=== PATIENT | male | born 1960 | race African-American/Black ===

== ENCOUNTER 2018-03-14 11:42 | Inpatient (IN) | payer MEDICAID, OTHER ==
[~2018-03-14] VITALS: Ht 180.3 cm; Wt 78.0 kg
[2018-03-14 12:28] LABS: BASOPHILS % 0.5 % (0.0-2.0); EOSINOPHILS % 0.1 % (0.0-5.0); HEMATOCRIT. 51.2 % (42.0-52.0); HEMOGLOBIN. 17.6 g/dL (14.0-18.0); LYMPHOCYTES % 16.3 % (20.0-50.0); MEAN CORPUSCULAR HEMOGLOBIN 28.6 pg (28.0-32.0); MEAN CORPUSCULAR VOLUME 83.4 fL (80.0-94.0); MONOCYTES % 5.7 % (2.0-8.0); NEUTROPHILS % 77.4 % (40.0-76.0); PLATELET 230 x1000/uL (130-400); RED BLOOD CELL COUNT 6.14 mill/uL (4.7-6.1); RED CELL DISTRIBUTION WIDTH 14.5 % (11.6-14.6)
[2018-03-14 12:36] LABS: PROTHROMBIN TIME 10.5 sec (9.4-11.6)
[2018-03-14 12:37] LABS: CHLORIDE 104 mEq/L (98-107)
[2018-03-14] MEDS ORDERED: SODIUM CHLORIDE 0.9% 1,000 ML IV ONE (12:45)
[2018-03-14] MEDS ORDERED: NITROGLYCERIN 0.4MG TABLET SL SL PRN (12:45)
[2018-03-14] MEDS ORDERED: FAMOTIDINE 20MG TABLET PO STA (12:45)
[2018-03-14] MEDS ORDERED: ASPIRIN 81MG TABLET PO STA (12:45)
[2018-03-14 15:43] LABS: CLARITY URINE CLEAR (CLEAR); COLOR URINE YELLOW (YELLOW); KETONES URINE NEGATIVE (NEGATIVE); LEUKOCYTE ESTERASE URINE TRACE (NEGATIVE); NITRITE URINE NEGATIVE (NEGATIVE); OCCULT BLOOD URINE NEGATIVE (NEGATIVE); PH URINE 5.5 (4.5-8.0); PROTEIN URINE NEGATIVE (NEGATIVE); SPECIFIC GRAVITY URINE 1.022 (1.005-1.030); UROBILINOGEN URINE 0.2 E.U./dL (0.2-1.0)
[2018-03-14] MEDS ORDERED: CEFTRIAXONE 1 G PREMIX 50 ML IV ONE (16:30)
[2018-03-14] MEDS ORDERED: HYDRALAZINE 20MG/ML VIAL IV NR (17:26)
[2018-03-14 18:04] VITALS: BP 163/91
[2018-03-14] MEDS ORDERED: HYDROCODONE/ACETAMINOPHEN 5/325MG TABLET PO PRN (18:45)
[2018-03-14] MEDS ORDERED: ONDANSETRON HCL 4MG/2ML VIAL IV PRN (18:45)
[2018-03-14] MEDS ORDERED: CLONIDINE 0.1MG TABLET PO PRN (18:45)
[2018-03-14] MEDS ORDERED: ACETAMINOPHEN 325MG TABLET PO PRN (18:45)
[2018-03-14] MEDS ORDERED: DOCUSATE SODIUM 100MG CAPSULE PO PRN (18:45)
[2018-03-14] MEDS ORDERED: MORPHINE SULFATE 4 MG/ML CPJ (NOT FOR IM USE) IV PRN (19:00)
[2018-03-14] MEDS: AMLODIPINE 10MG TABLET PO SCH (19:50)
[2018-03-14 20:00] VITALS: BP 160/97
[2018-03-14] MEDS ORDERED: ENOXAPARIN 40MG/0.4ML SYR SUBCUT SCH (21:00)
[2018-03-14] MEDS: METOPROLOL TARTRATE 25MG TABLET PO SCH (21:09)
[2018-03-15 00:05] VITALS: BP 147/92
[2018-03-15 00:31] LABS: CREATINE KINASE 361 IU/L (39-308); CREATINE KINASE MB FRACTION 1.9 ng/mL (0.5-3.6)
[2018-03-15 04:38] VITALS: BP 107/73
[2018-03-15 07:47] VITALS: BP 123/80
[2018-03-15] MEDS: METOPROLOL TARTRATE 25MG TABLET PO SCH (08:35)
[2018-03-15] MEDS: AMLODIPINE 10MG TABLET PO SCH (08:36)
[2018-03-15] MEDS ORDERED: ASPIRIN 81MG EC TABLET PO SCH (09:00)
[2018-03-15 09:07] LABS: BASOPHILS % 0.3 % (0.0-2.0); EOSINOPHILS % 0.3 % (0.0-5.0); HEMATOCRIT. 49.6 % (42.0-52.0); LYMPHOCYTES % 34.7 % (20.0-50.0); MEAN CORPUSCULAR HEMOGLOBIN 28.6 pg (28.0-32.0); MEAN CORPUSCULAR VOLUME 83.4 fL (80.0-94.0); MEAN PLATELET VOLUME 8.1 fl (7.4-10.4); NEUTROPHILS % 55.7 % (40.0-76.0); PLATELET 196 x1000/uL (130-400); RED BLOOD CELL COUNT 5.95 mill/uL (4.7-6.1); RED CELL DISTRIBUTION WIDTH 14.8 % (11.6-14.6)
[2018-03-15 09:40] LABS: CHLORIDE 104 mEq/L (98-107)
[2018-03-15 09:54] LABS: LDL CHOLESTEROL 105 mg/dL (5-100)
[2018-03-15 09:55] LABS: CREATINE KINASE 300 IU/L (39-308); HDL CHOLESTEROL 51 mg/dL (40-59)
[2018-03-15 09:56] LABS: T4 FREE 1.16 ng/dL (0.76-1.46)
[2018-03-15 09:58] LABS: CREATINE KINASE MB FRACTION 1.5 ng/mL (0.5-3.6)
[2018-03-15] MEDS ORDERED: FAMOTIDINE 20MG TABLET PO SCH (11:00)
[2018-03-15 12:00] VITALS: BP_SYST 118; BP_SYST 123; BP_DIAS 76; BP_DIAS 80
[2018-03-15 12:03] VITALS: BP 118/62
[2018-03-15] MEDS ORDERED: ATORVASTATIN CALCIUM 10MG TABLET PO SCH (21:00)
== END 2018-03-15 13:45 | disposition home or self-care (01) | DRG 251 ==
LOC: ER 12:34 → EDBEDREQ 16:30 → EDBEDREQTM 16:30 → 6WST 16:30 → ENRESERV 16:50
PROVIDERS: ADMIT Hospitalist; ATTEND Hospitalist
DX: R10.9 Unspecified abdominal pain (principal); I10 Essential (primary) hypertension; E78.5 Hyperlipidemia, unspecified; R07.89 Other chest pain; Z86.73 Personal history of transient ischemic attack (TIA), and cerebral infarction without residual deficits; Z90.49 Acquired absence of other specified parts of digestive tract
CPT/HCPCS: 36415; 71045; 76700; 80053; 80061; 81003; 82550; 82553; 83690; 83880; 84439; 84443; 84484; 85025; 85610; 93005; 93306; 93970; 96361; 96374; 96375; 99285; J0360; J0696; J1650; J7030

== ENCOUNTER 2022-02-04 00:40 | Emergency (ER) | payer MEDICAID ==
[~2022-02-04] VITALS: Ht 177.8 cm; Wt 87.0 kg
[2022-02-04] MEDS ORDERED: ASPIRIN 81MG TABLET PO ONE (01:15)
[2022-02-04] MEDS ORDERED: SODIUM CHLORIDE 0.9% 1,000 ML IV ONE (01:15)
[2022-02-04 01:21] LABS: BASOPHILS % 0.8 % (0.0-2.0); EOSINOPHILS % 3.5 % (0.0-5.0); HEMATOCRIT. 44.8 % (42.0-52.0); HEMOGLOBIN. 14.9 g/dL (14.0-18.0); LYMPHOCYTES % 37.2 % (20.0-50.0); MEAN CORPUSCULAR HEMOGLOBIN 28.4 pg (28.0-32.0); MEAN CORPUSCULAR VOLUME 85.4 fL (80.0-94.0); MEAN PLATELET VOLUME 8.1 fl (7.4-10.4); MONOCYTES % 7.2 % (2.0-8.0); NEUTROPHILS % 51.3 % (40.0-76.0); PLATELET 226 x1000/uL (130-400); RED BLOOD CELL COUNT 5.24 mill/uL (4.7-6.1); RED CELL DISTRIBUTION WIDTH 14.6 % (11.6-14.6)
[2022-02-04 01:25] LABS: CHLORIDE 110 mEq/L (98-107)
[2022-02-04 03:45] VITALS: BP 139/92
== END 2022-02-04 03:45 | disposition home or self-care (01) ==
LOC: ER 00:40
DX: R04.0 Epistaxis (principal); R00.0 Tachycardia, unspecified; I10 Essential (primary) hypertension; Z86.73 Personal history of transient ischemic attack (TIA), and cerebral infarction without residual deficits; Z98.890 Other specified postprocedural states
CPT/HCPCS: 36415; 71045; 80053; 83880; 84484; 85025; 93005; 96360; 99285; J7030

== ENCOUNTER 2025-03-04 08:59 | Emergency (ER) | payer MEDICARE, MEDICAID ==
[~2025-03-04] VITALS: Ht 177.8 cm; Wt 82.0 kg
[2025-03-04 09:11] VITALS: O2SAT 98
[2025-03-04 09:55] LABS: CLARITY URINE CLOUDY (CLEAR); COLOR URINE YELLOW (YELLOW); GLUCOSE URINE NEGATIVE (NEGATIVE); KETONES URINE NEGATIVE (NEGATIVE); LEUKOCYTE ESTERASE URINE 1+ (NEGATIVE); NITRITE URINE NEGATIVE (NEGATIVE); OCCULT BLOOD URINE 2+ (NEGATIVE); PROTEIN URINE NEGATIVE (NEGATIVE); SPECIFIC GRAVITY URINE 1.012 (1.005-1.030); UROBILINOGEN URINE 0.2 E.U./dL (0.2-1.0)
[2025-03-04 10:06] LABS: BACTERIA URINE 3+; RBC URINE 25-50 /hpf (0-2); SQUAMOUS EPITHELIAL CELL URINE RARE /lpf (RARE/1+); WBC URINE 15-25 /hpf (0-2); YEAST URINE NONE SEEN
[2025-03-04 10:35] LABS: HEMATOCRIT 49.4 % (42.0-52.0); HEMOGLOBIN 16.1 g/dL (14.0-18.0); MEAN CORPUSCULAR HEMOGLOBIN 27.8 pg (28.0-32.0); MEAN CORPUSCULAR HGB CONC 32.6 g/dL (31.0-37.0); MEAN CORPUSCULAR VOLUME 85.2 fL (80.0-94.0); PLATELET 170 x1000/uL (130-400); RED BLOOD CELL COUNT 5.79 mill/uL (4.7-6.1); RED CELL DISTRIBUTION WIDTH 15.2 % (11.6-14.6); WHITE BLOOD COUNT 4.6 x1000/uL (4.5-11.0)
[2025-03-04] MEDS: CEPHALEXIN 250MG CAPSULE PO NR (10:40)
[2025-03-04 10:42] LABS: CHLORIDE 105 mEq/L (98-107); POTASSIUM 3.8 mEq/L (3.5-5.1); SODIUM 139 mEq/L (136-145)
[2025-03-04 10:43] LABS: CALCIUM 9.5 mg/dL (8.7-10.4); CARBON DIOXIDE 25 mEq/L (21-32)
[2025-03-04 10:48] LABS: GLUCOSE 113 mg/dL (70-105); UREA NITROGEN BLOOD 12 mg/dL (9-23)
[2025-03-04] MEDS ORDERED: CEPH500C2 MT (11:18)
[2025-03-04 11:39] VITALS: BP 147/93; PULSE 79; RESP 16; TEMP 36.8; O2SAT 100
== END 2025-03-04 11:51 | disposition home or self-care (01) ==
LOC: ER 08:59
DX: N39.0 Urinary tract infection, site not specified (principal); R33.9 Retention of urine, unspecified; I10 Essential (primary) hypertension; F12.90 Cannabis use, unspecified, uncomplicated; Z86.73 Personal history of transient ischemic attack (TIA), and cerebral infarction without residual deficits; Z79.899 Other long term (current) drug therapy; Z90.49 Acquired absence of other specified parts of digestive tract
CPT/HCPCS: 36415; 80048; 81003; 85027; 99283

== ENCOUNTER 2025-03-05 04:28 | Emergency (ER) | payer MEDICARE, MEDICAID ==
[~2025-03-05] VITALS: Ht 177.8 cm; Wt 83.2 kg
[~2025-03-05 04:28] MED LIST: CEPH500C2 MT
[2025-03-05 04:38] VITALS: O2SAT 100
[2025-03-05 04:41] VITALS: BP 165/99; PULSE 90; RESP 18; TEMP 37.1; O2SAT 97
== END 2025-03-05 06:05 | disposition left against medical advice (07) ==
LOC: ER 04:28
DX: R33.9 Retention of urine, unspecified (principal); I10 Essential (primary) hypertension; Z90.49 Acquired absence of other specified parts of digestive tract; Z53.21 Procedure and treatment not carried out due to patient leaving prior to being seen by health care provider

== ENCOUNTER 2025-04-14 18:58 | Emergency (ER) | payer MEDICARE, MEDICAID ==
[~2025-04-14] VITALS: Ht 177.8 cm; Wt 82.0 kg
[2025-04-14 18:59] VITALS: O2SAT 99
[2025-04-14 19:09] VITALS: BP 149/99; PULSE 94; RESP 18; TEMP 36.8; O2SAT 98
[2025-04-14] MEDS ORDERED: TAMS-54 MT (23:11)
[2025-04-16] MEDS ORDERED: AMLO5TAB88 PO (15:48)
== END 2025-04-15 00:14 | disposition home or self-care (01) ==
LOC: ER 18:58
DX: N40.1 Benign prostatic hyperplasia with lower urinary tract symptoms (principal); R33.8 Other retention of urine; I10 Essential (primary) hypertension; F12.90 Cannabis use, unspecified, uncomplicated; Z90.49 Acquired absence of other specified parts of digestive tract; Z86.73 Personal history of transient ischemic attack (TIA), and cerebral infarction without residual deficits; Z79.899 Other long term (current) drug therapy
CPT/HCPCS: 51702; 99284

== ENCOUNTER 2025-04-16 10:20 | Inpatient (IN) | payer MEDICARE, MEDICAID ==
[~2025-04-16] VITALS: Ht 177.8 cm; Wt 78.0 kg
[~2025-04-16 10:20] MED LIST changes: +TAMS-54 MT
[2025-04-16] MEDS ORDERED: HYDROCODONE/ACETAMINOPHEN 5/325MG TABLET PO ONE (12:15)
[2025-04-16 12:24] LABS: BASOPHILS % 0.4 % (0.0-2.0); EOSINOPHILS % 0.5 % (0.0-5.0); HEMATOCRIT. 50.6 % (42.0-52.0); HEMOGLOBIN. 16.4 g/dL (14.0-18.0); LYMPHOCYTES % 39.9 % (20.0-50.0); MEAN CORPUSCULAR HEMOGLOBIN 27.7 pg (28.0-32.0); MEAN CORPUSCULAR HGB CONC 32.4 g/dL (31.0-37.0); MEAN CORPUSCULAR VOLUME 85.5 fL (80.0-94.0); MEAN PLATELET VOLUME 8.1 fl (7.4-10.4); MONOCYTES % 8.8 % (2.0-8.0); NEUTROPHILS % 50.4 % (40.0-76.0); PLATELET 168 x1000/uL (130-400); RED BLOOD CELL COUNT 5.92 mill/uL (4.7-6.1); RED CELL DISTRIBUTION WIDTH 14.8 % (11.6-14.6); WHITE BLOOD COUNT 3.5 x1000/uL (4.5-11.0)
[2025-04-16 12:32] LABS: CHLORIDE 105 mEq/L (98-107); POTASSIUM 3.6 mEq/L (3.5-5.1); SODIUM 139 mEq/L (136-145)
[2025-04-16 12:33] LABS: CALCIUM 10.4 mg/dL (8.7-10.4); CARBON DIOXIDE 24 mEq/L (21-32)
[2025-04-16 12:38] LABS: CREATININE 1.1 mg/dL (0.6-1.3); GLUCOSE 134 mg/dL (70-105); UREA NITROGEN BLOOD 11 mg/dL (9-23)
[2025-04-16] MEDS: HYDROCODONE/ACETAMINOPHEN 5/325MG TABLET PO NR (15:12)
[2025-04-16] MEDS ORDERED: MAGNESIUM/ALUMINUM HYDROXIDE/SIMETHICONE 30ML UDC PO PRN (15:45)
[2025-04-16] MEDS ORDERED: ONDANSETRON HCL 4MG/2ML INJ IV PRN (15:45)
[2025-04-16] MEDS ORDERED: CLONIDINE 0.1MG TABLET PO PRN (15:45)
[2025-04-16] MEDS ORDERED: IPRATROPIUM/ALBUTEROL 0.5-3(2.5)MG/3ML NEB HHN PRN (15:45)
[2025-04-16] MEDS ORDERED: ACETAMINOPHEN 325MG TABLET PO PRN (15:45)
[2025-04-16] MEDS ORDERED: AMLO5TAB88 PO (15:48)
[2025-04-16] MEDS: PIPERACILLIN/TAZO 3.375G/50ML 50 ML IV SCH ×2 (15:56→22:46)
[2025-04-16] MEDS ORDERED: DEXT 5%/0.45% NACL 1000ML 1,000 ML IV ONE (16:15)
[2025-04-16 16:55] VITALS: BP 148/78; PULSE 103; RESP 18; TEMP 36.4; O2SAT 94
[2025-04-16 17:29] VITALS: BP 148/78; PULSE 103; RESP 18; TEMP 36.6
[2025-04-16] MEDS: TAMSULOSIN HCL 0.4MG SR CAPSULE PO SCH (17:49)
[2025-04-16 20:00] VITALS: BP 140/89; PULSE 115; RESP 18; TEMP 36.4; O2SAT 98
[2025-04-16 20:16] LABS: HEMATOCRIT 43.5 % (42.0-52.0); HEMOGLOBIN 14.6 g/dL (14.0-18.0)
[2025-04-16] MEDS: FAMOTIDINE 20MG TABLET PO SCH (21:59)
[2025-04-16] MEDS: FINASTERIDE 5MG TABLET PO SCH (21:59)
[2025-04-16] MEDS: TAMSULOSIN HCL 0.4MG SR CAPSULE PO NR (22:11)
[2025-04-16] MEDS: HYDROCODONE/ACETAMINOPHEN 5/325MG TABLET PO SCH (22:46)
[2025-04-16 22:55] LABS: TROPONIN I HIGH SENSITIVITY 7 ng/L (3.0-53)
[2025-04-17] VITALS: BP 118/73; PULSE 73; RESP 18; TEMP 36.9
[2025-04-17 02:06] LABS: CLARITY URINE CLOUDY (CLEAR); COLOR URINE YELLOW (YELLOW); GLUCOSE URINE NEGATIVE (NEGATIVE); KETONES URINE NEGATIVE (NEGATIVE); LEUKOCYTE ESTERASE URINE 2+ (NEGATIVE); NITRITE URINE POSITIVE (NEGATIVE); OCCULT BLOOD URINE 3+ (NEGATIVE); PH URINE 6.5 (4.5-8.0); PROTEIN URINE TRACE (NEGATIVE); SPECIFIC GRAVITY URINE 1.016 (1.005-1.030)
[2025-04-17 04:00] VITALS: BP 108/69; PULSE 92; RESP 18; TEMP 36.8; O2SAT 98
[2025-04-17 04:49] LABS: RBC URINE TNTC /hpf (0-2); SQUAMOUS EPITHELIAL CELL URINE NONE SEEN /lpf (RARE/1+)
[2025-04-17 04:50] LABS: BACTERIA URINE 2+; CALCIUM OXALATE CRYSTALS URINE 1+ /lpf
[2025-04-17 07:30] LABS: BASOPHILS % 0.3 % (0.0-2.0); EOSINOPHILS % 0.1 % (0.0-5.0); HEMATOCRIT. 40.2 % (42.0-52.0); HEMOGLOBIN. 13.6 g/dL (14.0-18.0); LYMPHOCYTES % 7.1 % (20.0-50.0); MEAN CORPUSCULAR HEMOGLOBIN 28.7 pg (28.0-32.0); MEAN CORPUSCULAR HGB CONC 33.9 g/dL (31.0-37.0); MEAN CORPUSCULAR VOLUME 84.6 fL (80.0-94.0); MEAN PLATELET VOLUME 8.6 fl (7.4-10.4); MONOCYTES % 4.7 % (2.0-8.0); NEUTROPHILS % 87.8 % (40.0-76.0); PLATELET 115 x1000/uL (130-400); RED BLOOD CELL COUNT 4.75 mill/uL (4.7-6.1); RED CELL DISTRIBUTION WIDTH 14.7 % (11.6-14.6); WHITE BLOOD COUNT 8.2 x1000/uL (4.5-11.0)
[2025-04-17 07:40] LABS: CHLORIDE 105 mEq/L (98-107); POTASSIUM 3.6 mEq/L (3.5-5.1); SODIUM 138 mEq/L (136-145)
[2025-04-17 07:41] LABS: CARBON DIOXIDE 23 mEq/L (21-32)
[2025-04-17 07:46] LABS: GLUCOSE 134 mg/dL (70-105); TRIGLYCERIDE 202 mg/dL (0-150); TROPONIN I HIGH SENSITIVITY 6 ng/L (3.0-53); UREA NITROGEN BLOOD 9 mg/dL (9-23)
[2025-04-17 07:47] LABS: LDL CHOLESTEROL 49 mg/dL (5-100)
[2025-04-17 07:48] LABS: CHOLESTEROL 138 mg/dL (<200); HDL CHOLESTEROL 43 mg/dL (>55)
[2025-04-17 07:49] LABS: T4 FREE 1.47 ng/dL (0.89-1.76); THYROID STIMULATING HORMONE 2.31 uIU/mL (0.55-4.78)
[2025-04-17 08:00] VITALS: BP 135/75; PULSE 95; RESP 14; TEMP 36.7; O2SAT 95
[2025-04-17] MEDS: TAMSULOSIN HCL 0.4MG SR CAPSULE PO SCH (08:39)
[2025-04-17] MEDS: AMLODIPINE 5MG TABLET PO SCH (08:39)
[2025-04-17 12:00] VITALS: BP 137/82; PULSE 110; RESP 19; TEMP 36.6; O2SAT 93
[2025-04-17 16:00] VITALS: BP 130/89; PULSE 109; RESP 17; TEMP 36.6; O2SAT 93
[2025-04-17 20:00] VITALS: BP 131/86; PULSE 97; RESP 18; TEMP 36.5; O2SAT 100
[2025-04-18 00:16] VITALS: BP 129/82; PULSE 92; RESP 18; TEMP 36.7; O2SAT 98
[2025-04-18] MEDS ORDERED: MELATONIN 3MG TABLET PO PRN (00:30)
[2025-04-18] MEDS ORDERED: MAGNESIUM/ALUMINUM HYDROXIDE/SIMETHICONE 30ML UDC PO PRN (00:30)
[2025-04-18 04:00] VITALS: BP 132/86; PULSE 81; RESP 18; TEMP 36.4; O2SAT 98
[2025-04-18 07:59] LABS: CALCIUM 9.2 mg/dL (8.7-10.4); CARBON DIOXIDE 27 mEq/L (21-32); CHLORIDE 105 mEq/L (98-107); POTASSIUM 3.7 mEq/L (3.5-5.1); SODIUM 140 mEq/L (136-145)
[2025-04-18 08:00] VITALS: BP 136/90; PULSE 94; RESP 19; TEMP 36.7; O2SAT 99
[2025-04-18 08:03] LABS: HEMATOCRIT 41.5 % (42.0-52.0); HEMOGLOBIN 13.7 g/dL (14.0-18.0); MEAN CORPUSCULAR HEMOGLOBIN 28.1 pg (28.0-32.0); PLATELET 123 x1000/uL (130-400); RED BLOOD CELL COUNT 4.88 mill/uL (4.7-6.1); RED CELL DISTRIBUTION WIDTH 14.8 % (11.6-14.6); WHITE BLOOD COUNT 4.3 x1000/uL (4.5-11.0)
[2025-04-18 08:05] LABS: GLUCOSE 104 mg/dL (70-105); UREA NITROGEN BLOOD 7 mg/dL (9-23)
[2025-04-18 12:00] VITALS: BP 130/70; PULSE 90; RESP 18; TEMP 36.7; O2SAT 99
[2025-04-18] MEDS ORDERED: TAMS-54 MT (13:36)
[2025-04-18] MEDS ORDERED: SULF1TAB47 MT (13:36)
[2025-04-18] MEDS ORDERED: FINA1TAB14 PO (13:36)
[2025-04-18 15:55] VITALS: BP 130/70; PULSE 90; TEMP 98; O2SAT 99
== END 2025-04-18 17:05 | disposition home or self-care (01) | DRG 726 ==
LOC: ER 10:20 → EDBEDREQ 13:36 → 7EST 14:26 → EDBEDREQ 14:35
PROVIDERS: ADMIT Hospitalist; ATTEND Hospitalist
DX: N40.1 Benign prostatic hyperplasia with lower urinary tract symptoms (principal); S37.39XA Other injury of urethra, initial encounter; R31.9 Hematuria, unspecified; R33.8 Other retention of urine; E78.5 Hyperlipidemia, unspecified; I10 Essential (primary) hypertension; N35.919 Unspecified urethral stricture, male, unspecified site; M54.9 Dorsalgia, unspecified; X58.XXXA Exposure to other specified factors, initial encounter; E11.65 Type 2 diabetes mellitus with hyperglycemia; I95.9 Hypotension, unspecified; Z79.899 Other long term (current) drug therapy; Z86.73 Personal history of transient ischemic attack (TIA), and cerebral infarction without residual deficits; Y93.89 Activity, other specified; Z90.49 Acquired absence of other specified parts of digestive tract; Y92.89 Other specified places as the place of occurrence of the external cause; Y99.8 Other external cause status
CPT/HCPCS: 36415; 51702; 74176; 76770; 80048; 80061; 81003; 83036; 83735; 84439; 84443; 84484; 85014; 85018; 85025; 85027; 87077; 87186; 99284; 99285; A4606; J2543